=== PATIENT | male | born 1960 | race Caucasian/White ===

== ENCOUNTER 2024-01-31 00:32 | Emergency (ER) | payer OTHER, SELFPAY ==
[2024-01-31 00:33] VITALS: BP 158/92
--- NOTE | 2024-01-31 00:51 | ED.GENMED ---
History of Present Illness
General
Chief Complaint: Skin Problem
Source: patient
Exam Limitations: none
Time Seen by Provider: 01/31/24 00:38
History of Present Illness
History of Present Illness:
Patient rolled his finger 2 days ago. Cleaned with peroxide. However recurrent bleeding. Right fourth ring finger
Review of Systems
Review of Systems
All Other Systems: Not applicable
Phy Exam
Physical Exam
Physical Exam:
General: Nontoxic appearing in no distress
Skin: Warm and dry, no rash
Neuro: Alert, nontoxic, grossly nonfocal
Psychiatric: Good eye contact and appropriate
Musculoskeletal: Jagged laceration right fourth ring finger at the proximal phalanx. Motor or sensory neurovascular intact. No current bleeding. Flexion extension intact.
Course
Orders/Labs/Results
Orders:
Orders
01/31/24 00:51
Tetanus/Diphth/Acelpertussis [Adacel] 0.5 ml IM .ONCE ONE
Vital Signs
Initial and Last Documented VS:
Initial Vital Signs
Temp Pulse Resp BP Pulse Ox
98 F 70 22 158/92 96
01/31/24 00:33 01/31/24 00:33 01/31/24 00:33 01/31/24 00:33 01/31/24 00:33
Last Documented Vital Signs
Temp Pulse Resp BP Pulse Ox
98 F 70 22 158/92 96
01/31/24 00:33 01/31/24 00:33 01/31/24 00:33 01/31/24 00:33 01/31/24 00:33
MDM/Problems Addressed
Differential Diagnosis Includes:
Tetanus updated. No signs of infection at this time but based on the nature of the wound will give a prescription for antibiotics but will watch closely for any signs of infection. Bulky dressing and splint or finger splint to help prevent bending
no indication for x-ray
*Critical Care Note
Total Time (30-74mins, 75-104mins- exclusive of procedures): Not Applicable
ED Attending Note
-
Portions of this chart may have been created with voice recognition software.� Occasional wrong word or��sound alike� substitutions may have occurred due to the inherent limitations of voice recognition software.
Discharge Plan
Departure
Patient Disposition: Home (Routine Discharge)
Date of Disposition: 01/31/24
Time of Disposition: 00:52
Patient with high blood pressure during this ER visit?: Yes
Discharge Problem:
Right fourth finger laceration
Instructions: Wound Care (DC), BLOOD PRESSURE
Prescriptions:
New
cefadroxil 500 mg capsule
500 mg PO BID Qty: 14 0RF
Activity Restrictions/Additional Instructions:
Start the antibiotic with any signs of infection
Interventions
Interventions:
*Risk Screen - Suicide Last Done: 01/31/24 00:33
*General Assessment Last Done: 01/31/24 00:40
*Neglect/Abuse Screening Last Done: 01/31/24 00:33
ED- Fall Risk Assessment Last Done: 01/31/24 00:40
*ED COVID-19 Vaccine History Last Done: 01/31/24 00:40
ED-Skin Assessment Last Done: 01/31/24 00:40
Discharge Date and Time
Print Language: GIBRALTARIAN
[2024-01-31] MEDS: ADACEL 0.5 ML IM (01:17)
[2024-01-31 01:25] VITALS: BP 136/82
== END 2024-01-31 01:25 | disposition home or self-care (01) ==
LOC: EMR 00:32
PROVIDERS: EMERGENCY PHYSICIAN Emergency Medicine; FAMILY PHYSICIAN Family Medicine
DX: S61.214A Laceration without foreign body of right ring finger without damage to nail, initial encounter (principal); X58.XXXA Exposure to other specified factors, initial encounter; Z23 Encounter for immunization; R03.0 Elevated blood-pressure reading, without diagnosis of hypertension
CPT/HCPCS: 99283; 90471; 29130; 90715